=== PATIENT | male | born 1945 | race Caucasian/White ===

== ENCOUNTER 2020-07-23 07:48 | Emergency (ER) | payer MEDICARE, OTHER ==
[2020-07-23] MEDS ORDERED: Sodium Chloride 0.9% 10 ML Syringe FLUSH PRN (08:12)
--- NOTE | 2020-07-23 08:23 | EDM.PDOC ---
ED HPI GENERAL MEDICAL PROBLEM - General Chief Complaint: General Stated Complaint: CONFUSION Time Seen by Provider: 07/23/20 08:00 Source of Information: Reports: Patient, Family History Limitations: Reports: No Limitations - History of Present Illness INITIAL COMMENTS - FREE TEXT/NARRATIVE: 75 YO WM PRESENTS TO ER WITH NEW ONSET CONFUSION WHICH BEGAN THIS AM. PT REPORTS HE FELT FINE LAST NIGHT BEFORE BEDTIME AND SLEPT THROUGH THE NIGHT WITHOUT ANY ISSUE. PT WOKE THIS AM AND STATES HE HAD TROUBLE RECALLING BASIC FACTS. PT WAS ABLE TO TELL ME HIS NAME, THE DATE, DAY OF THE WEEK AND YEAR. PT ALERT AND ORIENTED X 4 AND IN NO ACUTE DISTRESS. PT DENIES TAKING ANY MEDICATIONS AND STATES HE HASN'T BEEN TO THE DOCTOR IN YEARS. PT CURRENTLY HAS NO PRIMARY CARE PHYSICIAN. PT DENIES CHEST PAIN, HEADACHE, NECK PAIN, ABDOMINAL PAIN, FEVER/CHILLS, NO RECENT ILLNESSES, NO NAUSEA/VOMITING. PT ABLE TO AMBULATE WITHOUT DIFFICULTY AND HAS NO SLURRED SPEECH, NO ATAXIA, NO FACIAL DROOP OR OBVIOUS FOCAL NEURO CHANGES. PT DENIES DYSURIA, FREQUENCY, URGENCY OR URINARY RETENTION. PT IS PLEASANT, MILDLY CONFUSED AND ASKED ME MY NAME MULTIPLE TIMES ON INITIAL EVALUATION. Onset: Today Location: Reports: Generalized Severity: Mild Improves with: Reports: None Worsens with: Reports: None Associated Symptoms: Reports: No Other Symptoms. Denies: Chest Pain, Cough, Fever/Chills, Headaches, Nausea/Vomiting, Seizure, Shortness of Breath, Syncope, Weakness - Related Data Allergies Allergy/AdvReac Type Severity Reaction Status Date / Time No Known Allergies Allergy Verified 07/23/20 07:58 Home Meds: Home Meds . [No Known Home Meds] 07/23/20 [History] ED ROS GENERAL - Review of Systems Review Of Systems: See Below Constitutional: Reports: No Symptoms HEENT: Reports: No Symptoms Respiratory: Reports: No Symptoms Cardiovascular: Reports: No Symptoms Endocrine: Reports: No Symptoms GI/Abdominal: Reports: No Symptoms : Reports: No Symptoms Musculoskeletal: Reports: No Symptoms Skin: Reports: No Symptoms Neurological: Reports: Confusion Psychiatric: Reports: No Symptoms Hematologic/Lymphatic: Reports: No Symptoms Immunologic: Reports: No Symptoms ED EXAM, GENERAL - Physical Exam Exam: See Below Exam Limited By: No Limitations General Appearance: Alert, WD/WN, No Apparent Distress Eye Exam: Bilateral Eye: EOMI, PERRL Head: Atraumatic, Normocephalic Neck: Normal Inspection, Supple, Non-Tender, Full Range of Motion Respiratory/Chest: No Respiratory Distress, Lungs Clear, Normal Breath Sounds, No Accessory Muscle Use, Chest Non-Tender Cardiovascular: Normal Peripheral Pulses, Regular Rate, Rhythm, No Edema, No Gallop, No JVD, No Murmur, No Rub GI/Abdominal: Normal Bowel Sounds, Soft, Non-Tender, No Organomegaly, No Distention, No Abnormal Bruit, No Mass Back Exam: Normal Inspection, Full Range of Motion, NT Extremities: Normal Inspection, Normal Range of Motion, Non-Tender, Normal Capillary Refill, No Pedal Edema Neurological: Alert, Oriented, CN II-XII Intact, Normal Cognition, Normal Gait, No Motor/Sensory Deficits, Confused, Memory Loss Recent Events. No: Memory Loss Remote Events Psychiatric: Normal Affect, Normal Mood Skin Exam: Warm, Dry, Intact, Normal Color, No Rash Lymphatic: No Adenopathy #1 Interpretation EKG Date: 07/23/20 Time: 07:55 Rhythm: NSR Rate (Beats/Min): 65 [place]: Normal P-Wave: Present QRS: Normal ST-T: Normal QT: Prolonged Comparison: NA - No Prior EKG Course - Vital Signs Last Recorded V/S: Last Vital Signs Temp 97.3 F 07/23/20 07:58 Pulse 62 07/23/20 09:09 Resp 20 07/23/20 09:09 BP 181/96 H 07/23/20 09:01 Pulse Ox 94 L 07/23/20 09:09 - Orders/Labs/Meds Orders: Active Orders 24 hr Category Date Time Status EKG Documentation Completion [RC] ASDIRECTED Care 07/23/20 08:14 Active Peripheral IV Care [RC] . DIRECTED Care 07/23/20 08:14 Active Sodium Chloride 0.9% [Saline Flush] Med 07/23/20 08:12 Active 10 ml FLUSH Q8HR PRN Peripheral IV Insertion Adult [OM.PC] Routine Oth 07/23/20 08:12 Ordered EKG 12 Lead [EK] Stat Ther 07/23/20 08:12 Ordered Medication Orders Sodium Chloride (Sodium Chloride 0.9% 10 Ml Syringe) 10 ml FLUSH Q8HR PRN PRN Reason: keep vein open Labs: Laboratory Tests 07/23/20 07/23/20 07/23/20 Range/Units 07:56 08:05 08:05 WBC 9.59 (5.00-10.00) 10^3/uL RBC 5.51 (4.50-6.00) 10^6/uL Hgb 15.7 (13.0-17.0) g/dL Hct 48.7 (40.0-52.0) % MCV 88.4 (82.0-92.0) fL MCH 28.5 (27.0-31.0) pg MCHC 32.2 (32.0-36.0) g/dL RDW 13.2 (11.5-14.5) % Plt Count 193 (150-400) 10^3/uL MPV 10.6 H (7.4-10.4) fL Immature Gran % (Auto) 0.2 (0.0-5.0) % Neut % (Auto) 59.1 (50.0-70.0) % Lymph % (Auto) 29.6 (20.0-40.0) % [place] % (Auto) 6.6 (2.0-8.0) % Eos % (Auto) 3.6 H (1.0-3.0) % Baso % (Auto) 0.9 (0.0-1.0) % Neut # (Auto) 5.66 (2.50-7.00) 10^3/uL Lymph # (Auto) 2.84 (1.00-4.00) 10^3/uL [place] # (Auto) 0.63 (0.10-0.80) 10^3/uL Eos # (Auto) 0.35 H (0.10-0.30) 10^3/uL Baso # (Auto) 0.09 (0.00-0.10) 10^3/uL Immature Gran # (Auto) 0.02 (0.00-0.50) 10^3/uL Sodium 132 L (136-145) mmol/L Potassium 3.7 (3.5-5.1) mmol/L Chloride 97 L (98-107) mmol/L Carbon Dioxide 26.2 (21.0-32.0) mmol/L Anion Gap 12.5 (5-15) mmol/L BUN 18 (7-18) mg/dL Creatinine 1.02 (0.51-1.17) mg/dL Est Cr Clr Drug Dosing 58.68 mL/min Estimated GFR (MDRD) > 60 mL/min Glucose 117 (70-140) mg/dL POC Glucose 121 (70-140) mg/dL Lactic Acid (0.4-2.0) mmol/L Calcium 8.2 L (8.7-10.3) mg/dL Total Bilirubin 0.6 (0.2-1.0) mg/dL AST 21 (15-37) U/L ALT 32 (14-63) U/L Alkaline Phosphatase 80 (46-116) U/L Ammonia (11.2-31.7) umol/L Creatine Kinase 132 (26-276) U/L CK-MB (CK-2) 1.11 (0.00-3.60) ng/mL Troponin I High Sens 17.800 (0-76.000) pg/mL Total Protein 5.2 L (6.4-8.2) g/dL Albumin 3.80 (3.40-5.00) g/dL Specimen Type Urine Color (YELLOW) Urine Appearance (CLEAR) Urine pH (5.0-9.0) Ur Specific [place] (1.005-1.030) Urine Protein (NEGATIVE) mg/dL Urine Glucose (UA) (NEGATIVE) mg/dL Urine Ketones (NEGATIVE) mg/dL Urine Occult Blood (NEGATIVE) Urine Nitrite (NEGATIVE) Urine Bilirubin (NEGATIVE) Urine Urobilinogen (0.2-1.0) E.U./dL Ur Leukocyte Esterase (NEGATIVE) Urine RBC (0-5) /HPF Urine WBC (0-5) /HPF Ur Epithelial Cells /LPF Urine Bacteria (NONE TO FEW) /HPF 07/23/20 07/23/20 07/23/20 Range/Units 08:05 08:05 08:35 WBC (5.00-10.00) 10^3/uL RBC (4.50-6.00) 10^6/uL Hgb (13.0-17.0) g/dL Hct (40.0-52.0) % MCV (82.0-92.0) fL MCH (27.0-31.0) pg MCHC (32.0-36.0) g/dL RDW (11.5-14.5) % Plt Count (150-400) 10^3/uL MPV (7.4-10.4) fL Immature Gran % (Auto) (0.0-5.0) % Neut % (Auto) (50.0-70.0) % Lymph % (Auto) (20.0-40.0) % [place] % (Auto) (2.0-8.0) % Eos % (Auto) (1.0-3.0) % Baso % (Auto) (0.0-1.0) % Neut # (Auto) (2.50-7.00) 10^3/uL Lymph # (Auto) (1.00-4.00) 10^3/uL [place] # (Auto) (0.10-0.80) 10^3/uL Eos # (Auto) (0.10-0.30) 10^3/uL Baso # (Auto) (0.00-0.10) 10^3/uL Immature Gran # (Auto) (0.00-0.50) 10^3/uL Sodium (136-145) mmol/L Potassium (3.5-5.1) mmol/L Chloride (98-107) mmol/L Carbon Dioxide (21.0-32.0) mmol/L Anion Gap (5-15) mmol/L BUN (7-18) mg/dL Creatinine (0.51-1.17) mg/dL Est Cr Clr Drug Dosing mL/min Estimated GFR (MDRD) mL/min Glucose (70-140) mg/dL POC Glucose (70-140) mg/dL Lactic Acid 1.9 (0.4-2.0) mmol/L Calcium (8.7-10.3) mg/dL Total Bilirubin (0.2-1.0) mg/dL AST (15-37) U/L ALT (14-63) U/L Alkaline Phosphatase (46-116) U/L Ammonia 19.0 (11.2-31.7) umol/L Creatine Kinase (26-276) U/L CK-MB (CK-2) (0.00-3.60) ng/mL Troponin I High Sens (0-76.000) pg/mL Total Protein (6.4-8.2) g/dL Albumin (3.40-5.00) g/dL Specimen Type Urinvoid Urine Color Yellow (YELLOW) Urine Appearance Clear (CLEAR) Urine pH 5.5 (5.0-9.0) Ur Specific [place] >= 1.030 (1.005-1.030) Urine Protein Negative (NEGATIVE) mg/dL Urine Glucose (UA) Negative (NEGATIVE) mg/dL Urine Ketones Negative (NEGATIVE) mg/dL Urine Occult Blood Negative (NEGATIVE) Urine Nitrite Negative (NEGATIVE) Urine Bilirubin Negative (NEGATIVE) Urine Urobilinogen 0.2 (0.2-1.0) E.U./dL Ur Leukocyte Esterase Negative (NEGATIVE) Urine RBC 0-5 (0-5) /HPF Urine WBC 0-5 (0-5) /HPF Ur Epithelial Cells Rare /LPF Urine Bacteria Rare (NONE TO FEW) /HPF Meds: Medications Generic Name Dose Route Start Last Admin Trade Name Freq PRN Reason Stop Dose Admin Sodium Chloride 10 ml 07/23/20 08:12 Sodium Chloride 0.9% 10 Ml Syringe FLUSH Q8HR PRN keep vein open - Radiology Interpretation Free Text/Narrative:: CT HEAD-NAD CXR-NAD Departure - Departure Time of Disposition: 09:34 Disposition: Home, Self-Care 01 Condition: Fair Clinical Impression: Short-term memory loss, Confusion - Discharge Information Instructions: Confusion Referrals: Priscilla Kenyon MD [Primary Care Provider] - Forms: ED Department Discharge Additional Instructions: 1. DISCHARGE HOME-PT FAMILY WOULD LIKE TO TAKE PT TO [place] FOR FURTHER EVALUATION 2. RECOMMEND FOLLOW UP WITH NEUROLOGY FOR FURTHER EVALUATION AND TREATMENT 3. RECOMMEND ANTIHYPERTENSIVE MEDICATION 4. RECOMMEND ESTABLISHING WITH PCP FOR FURTHER MANAGEMENT OF HYPERTENSION 5. RETURN TO ER FOR WORSENING SYMPTOMS Sepsis Event Note (ED) - Focused Exam Vital Signs: Vital Signs Temp Pulse Resp BP Pulse Ox 07/23/20 09:09 62 20 94 L 07/23/20 09:01 63 14 181/96 H 94 L 07/23/20 08:57 177/78 H 07/23/20 08:35 67 16 170/90 H 93 L 07/23/20 08:20 69 16 173/79 H 95 07/23/20 07:58 97.3 F 68 17 178/88 H 95 - My Orders Last 24 Hours: My Active Orders 07/23/20 08:12 Sodium Chloride 0.9% [Saline Flush] 10 ml FLUSH Q8HR PRN Peripheral IV Insertion Adult [OM.PC] Routine EKG 12 Lead [EK] Stat 07/23/20 08:14 EKG Documentation Completion [RC] ASDIRECTED Peripheral IV Care [RC] . DIRECTED - Assessment/Plan Last 24 Hours: My Active Orders 07/23/20 08:12 Sodium Chloride 0.9% [Saline Flush] 10 ml FLUSH Q8HR PRN Peripheral IV Insertion Adult [OM.PC] Routine EKG 12 Lead [EK] Stat 07/23/20 08:14 EKG Documentation Completion [RC] ASDIRECTED Peripheral IV Care [RC] . DIRECTED Assessment:: 1. SHORT TERM MEMORY LOSS-IMPROVED 2. CONFUSION-IMPROVED 3. UNCONTROLLED HYPERTENSION- RECOMMENDING ANTIHYPERTENSIVE MEDICATION. PT WOULD PREFER TO WAIT TO SEE PCP Plan: 1. DISCHARGE HOME-PT FAMILY WOULD LIKE TO TAKE PT TO [place] FOR FURTHER EVALUATION 2. RECOMMEND FOLLOW UP WITH NEUROLOGY FOR FURTHER EVALUATION AND TREATMENT 3. RECOMMEND ANTIHYPERTENSIVE MEDICATION 4. RECOMMEND ESTABLISHING WITH PCP FOR FURTHER MANAGEMENT OF HYPERTENSION 5. RETURN TO ER FOR WORSENING SYMPTOMS
--- NOTE | 2020-07-23 08:45 | CR ---
[id number] RAD/RAD Chest PA or AP 1V EXAM: RAD Chest PA or AP 1V INDICATION: CONFUSION. COMPARISON: None. DISCUSSION/IMPRESSION: Mild cardiomegaly. No evidence of vascular congestion. Lungs are clear. No pleural effusion or pneumothorax. Andi Tijerina MD 07/23/20 0844 Thank you for allowing us to participate in the care of your patient.
[2020-07-23 08:52] LABS: ANION GAP 12.5 mmol/L (5-15); CHLORIDE,CL 97 mmol/L (98-107); SODIUM,NA 132 mmol/L (136-145)
--- NOTE | 2020-07-23 08:52 | CT ---
[id number] CT/CT Head WO IV EXAM: CT Head WO IV CLINICAL DATA: CONFUSION. COMPARISON STUDY: None FINDINGS: No intracranial hemorrhage, extra-axial fluid collection, mass, or acute ischemia. No hydrocephalus. Calvarium intact. Paranasal sinuses and mastoid air cells are clear. IMPRESSION: No acute intracranial findings. Andi Tijerina MD 07/23/20 0849 Thank you for allowing us to participate in the care of your patient.
== END 2020-07-23 09:50 | disposition home or self-care (01) ==
LOC: KA.ED 07:48
DX: R41.0 Disorientation, unspecified (principal); R41.3 Other amnesia; R94.31 Abnormal electrocardiogram [ECG] [EKG]
CPT/HCPCS: 70450; 71045; 80053; 81001; 82140; 82550; 82553; 82947; 83605; 84484; 85025; 93005; 99284; 99285-25